=== PATIENT | female | born 1930 | race Caucasian/White ===

== ENCOUNTER 2016-09-10 04:39 | Inpatient (IN) | payer BC, OTHER ==
[~2016-09-10] VITALS: Ht 165.1 cm; Wt 54.4 kg
--- NOTE | 2016-09-10 04:45 | NUR ---
TO BED 3 [facility] PARAMEDICS C/O ALTERED MENTAL STATUS, PT SOMNOLENT, NO ACUTE DISTRESS NOTED, RESP EVEN AND UNLABORED. PLACE PT ON CARDIAC MONITORING, CONTINUOUS POX, O2@2L/NC. ER MD AT BEDSIDE TO EVAL PT WITH ORDERS RECEIVED. STARTED SL 18G TO R FOREARM, BLOOD DRAWNAND SENT OT LAB.
[2016-09-10] MEDS ORDERED: DEXTROSE 50%-WATER 50 ML DISP.SYRIN IVP ONE (05:00)
[2016-09-10] MEDS ORDERED: IV NS 0.9% 1,000 ML BAG IV ONE (05:00)
[2016-09-10] MEDS ORDERED: IV NS 0.9% 1,000 ML ONE (05:05)
[2016-09-10] MEDS ORDERED: DEXTROSE 50%-WATER 50 ML DISP.SYRIN ONE (05:05)
[2016-09-10] MEDS ORDERED: IV SET PRIMARY 1 EA INFUS.SET MC ONE (05:05)
[2016-09-10 05:11] LABS: BASOPHILS % (AUTO) 0.4 % (0.0-2.0); EOSINOPHILS # (AUTO) 0.3 /CMM (0.0-0.7); EOSINOPHILS % (AUTO) 3.5 % (0.0-6.0); HEMATOCRIT 41 % (33-45); HEMOGLOBIN 13.6 g/dL (11.5-14.8); LYMPHOCYTES # (AUTO) 1.5 /CMM (0.8-4.8); LYMPHOCYTES % (AUTO) 20.8 % (20.0-44.0); MEAN CORPUSCULAR HEMOGLOBIN 31 PG (26.0-33.0); MEAN CORPUSCULAR HGB CONC 33 g/dl (31.0-36.0); MEAN CORPUSCULAR VOLUME 94 fL (82-100); MONOCYTES # (AUTO) 0.5 /CMM (0.1-1.30); MONOCYTES % (AUTO) 6.3 % (2.0-12.0); PLATELET COUNT (AUTO) 273 /CMM (150-450); RDW COEFFICIENT OF VARIATION 14.9 (11.5-15.0); RED BLOOD CELL COUNT(AUTO) 4.36 MIL/uL (4.0-5.2); WHITE BLOOD COUNT (AUTO) 7.3 K/uL (4.3-11.0)
[2016-09-10 05:29] LABS: APPEARANCE,URINE CLOUDY (CLEAR); BILIRUBIN,URINE NEGATIVE (NEGATIVE); BLOOD, URINE TRACE-INTA Ery/uL (NEGATIVE); COLOR,URINE YELLOW (YELLOW); KETONES,URINE TRACE (NEGATIVE); LEUKOCYTE ESTERASE ,URINE NEGATIVE (NEGATIVE); NITRITE, URINE NEGATIVE (NEGATIVE); PH,URINE 5.5 (5.0-8.0); PROTEIN,URINE 1+ mg/dl (NEGATIVE); UGLUCOSE NEGATIVE (NEGATIVE)
[2016-09-10 05:34] LABS: ALANINE AMINOTRANSFERASE 13 U/L (12-78); ALBUMIN 3.3 g/dL (3.4-5.0); ALKALINE PHOSPHATASE 68 U/L (46-116); ASPARTATE AMINOTRANSFERASE 33 U/L (15-37); BILIRUBIN,DIRECT 0.1 mg/dL (0.0-0.2); BILIRUBIN,TOTAL 0.4 mg/dL (0.2-1.0); CALCIUM, SERUM 9.2 mg/dL (8.5-10.1); CARBON DIOXIDE 28 mmol/L (21-32); CHLORIDE 105 mmol/L (98-107); CREATININE 0.8 mg/dL (0.6-1.3); GLUCOSE 81 mg/dL (74-106); INR 1.11 (0.87-1.13); POTASSIUM 3.6 mmol/L (3.5-5.1); PROTHROMBIN TIME 11.9 SECS (9.5-12.7); SODIUM SERUM 141 mmol/L (136-145); TOTAL PROTEIN, SERUM 7.1 g/dL (6.4-8.2); UREA NITROGEN, BLOOD 31 mg/dL (7-18)
[2016-09-10 05:37] LABS: TROPONIN I 0.017 ng/mL (0.00-0.056)
--- NOTE | 2016-09-10 05:38 | NUR ---
PT BACK FROM RADIOLOGY. PENDING CT RESULT.
--- NOTE | 2016-09-10 05:39 | NUR ---
CT RESULT RECEIVED. ER MADE AWARE.
[2016-09-10 05:40] LABS: BACTERIA,URINE None seen /HPF (None Seen); MUCUS,URINE Few /LPF (None Seen); RBC,URINE 0-2 /HPF (0-2); SQUAMOUS EPITHELIAL CELL,UR Moderate /HPF (None Seen); URINE AMORPHOUS URATE Many /HPF (None Seen); WBC,URINE 0-2 /HPF (0-3)
--- NOTE | 2016-09-10 06:09 | NUR ---
MD BERUMEN CALLED
[2016-09-10] MEDS ORDERED: CRAN3875 PO (06:26)
[2016-09-10] MEDS ORDERED: ARGI1POW13 PO (06:26)
[2016-09-10] MEDS ORDERED: LEVO100T9 PO (06:26)
[2016-09-10] MEDS ORDERED: DONE10TA4 PO (06:26)
[2016-09-10] MEDS ORDERED: ZINC220C6 PO (06:26)
[2016-09-10] MEDS ORDERED: AMIN30LI27 PO (06:26)
[2016-09-10] MEDS ORDERED: CRAN425C PO (06:26)
[2016-09-10] MEDS ORDERED: MAGN2400 PO (06:26)
[2016-09-10] MEDS ORDERED: PRAM0.37 PO (06:26)
[2016-09-10] MEDS ORDERED: CARB-92 PO (06:26)
[2016-09-10] MEDS ORDERED: ACET-868 PO (06:26)
[2016-09-10] MEDS ORDERED: MULT1TAB11 PO (06:26)
[2016-09-10] MEDS ORDERED: ASCO500T9 PO (06:26)
[2016-09-10] MEDS ORDERED: DOCU-25 PO (06:26)
--- NOTE | 2016-09-10 06:35 | NUR ---
REPORT CALLED TO RETAIL WORKERNAKUL RHODES. WILL TRANSPORT VIA [facility].
--- NOTE | 2016-09-10 07:20 | NUR ---
EDUCATIONAL ASSISTANT TEACHER NOTES RECEIVED PATIENT IN BED, LETHARGIC , EASILY AROUSED. NO APPARENT DISTRESS NOTED, NO SOB NOTED, DENIES PAIN. PATIENT IS NEW ADMISSION A/O X 1, ON TELE MONITORING A FIB HR 110,VS STABLE. NO PATIENT PULLED OUT IV LINE. ALL NEEDS MET, KEPT CLEAN AND DRY. Addendum: 09/10/16 at 1609 by EMMANUEL CRUZ RN PATIENT HAD LARGE BOWEL MOVEMENT, NOTE WITH SACRAL AND DRESSINGS ON BILATERAL HEELS.
[2016-09-10 08:00] VITALS: BP 122/70
[2016-09-10] MEDS: LEVOTHYROXINE SODIUM 100 MCG TABLET PO SCH (08:58)
[2016-09-10] MEDS ORDERED: ACETAMINOPHEN 650 MG/20.3 ML UDC PO PRN (09:00)
[2016-09-10] MEDS ORDERED: HYDROCODONE/APAP 5/325MG 1 EACH TABLET PO PRN (09:00)
[2016-09-10] MEDS: CARBIDOPA/LEVODOPA 10/100 MG 1 UDTAB PO SCH ×4 (09:00→21:00)
[2016-09-10] MEDS: PRAMIPEXOLE DI-HCL 0.25 MG TABLET PO SCH ×4 (09:00→21:00)
--- NOTE | 2016-09-10 09:00 | NUR ---
CONVICT GUARD NOTES MEDS HELD DUE TO PATIENT BEING LETHARGIC.
[2016-09-10] MEDS ORDERED: LEVOFLOXACIN 500 MG /D5W 100ML 500 MG in PREMIX 1 EA IV SCH (10:00)
[2016-09-10] MEDS: ENOXAPARIN SODIUM 30 MG/0.3 ML DISP.SYRIN SQ SCH (11:29)
[2016-09-10] MEDS: LEVOFLOXACIN 750 MG /D5W 150ML 750 MG in PREMIX 1 EA IV SCH (11:49)
[2016-09-10] MEDS ORDERED: IV NS 0.9% 250 ML IV ONE (11:49)
[2016-09-10] MEDS ORDERED: SECONDARY IV SET 1 EA INFUS.SET MC ONE (11:53)
[2016-09-10 12:00] VITALS: BP 116/92
[2016-09-10] MEDS ORDERED: IV SET PRIMARY PUMP SET 1 EA INFUS.SET MC ONE (12:01)
--- NOTE | 2016-09-10 13:00 | NUR ---
WELFARE PROJECT MANAGER NOTES PATIENT MORE AWAKE, ATE 75% OF LUNCH TRAY.
[2016-09-10 16:00] VITALS: BP 106/57
--- NOTE | 2016-09-10 16:00 | NUR ---
TUTOR COORDINATOR NOTES WOUND TREATMENT DONE. CLEANSED SACRAL WOUND AND COVERED WITH MEPILEX. BILATERAL HEELS DTI, COVERED WITH MEPILEX OFFLOADED HEELS. PICTURES TAKE FOR CHART.
--- NOTE | 2016-09-10 18:50 | NUR ---
TECHNICIAN HELPER INSTRUMENT CLOSING NOTES PATIENT IN BED, NO APPARENT DISTRESS NOTED, DENIES PAIN DENIES SOB. ALL DUE MEDS GIVEN, ALL NEEDS MET, KEPT CLEAN AND DRY. ON 2L O2 VIA NC CANULA SATURATING WELL., ON TELE MONITORING AFIB 100. WILL ENDORSE CARE TO PM SHIFT.
--- NOTE | 2016-09-10 19:25 | NUR ---
TELE/RN NOTES RECEIVED PT. LYING IN BED RESTING. PT. IS EASILY AROUSABLE TO NAME. AWAKE, ALERT AND ORIENTED TO SELF. BREATHING EVEN AND UNLABORED ON 2LPM O2 VIA NC. NO SOB, RESPIRATORY DISTRESS OR COMPLAINTS OF PAIN NOTED AT THIS TIME. PT. WITH EXTERNAL FORKLIFT TECHNICIAN PRESENT AND INTACT. CURRENT RHYTHM = AFIB 98. PT. WITH RIGHT FOREARM 22 GAUGE IV SALINE LOCK PRESENT, PATENT AND INTACT. BED IN LOWEST POSITION, SIDE RAILS UP X3, BED ALARM ON, CALL LIGHT WITHIN REACH, WILL CONTINUE TO MONITOR.
[2016-09-10 20:00] VITALS: BP 96/49
[2016-09-10] MEDS ORDERED: DONEPEZIL 5 MG TABLET PO SCH (22:00)
[2016-09-11] VITALS: BP 98/70
--- NOTE | 2016-09-11 06:54 | NUR ---
TELE/RN NOTES PT. LYING IN BED AWAKE, ALERT AND ORIENTED TO SELF. BREATHING EVEN AND UNLABORED ON 2LPM O2 VIA NC. NO SOB, RESPIRATORY DISTRESS OR COMPLAINTS OF PAIN NOTED AT THIS TIME. PT. WITH EXTERNAL TRANSFORMATION CONSULTANT PRESENT AND INTACT. CURRENT RHYTHM = AFIB 112. PT. WITH LEFT HAND 24 GAUGE IV SALINE LOCK PRESENT, PATENT AND INTACT. ALL PT. NEEDS MET. PT. TURNED AND REPOSITIONED Q2H AND NEEDED. BILATERAL HEELS OFFLOADED AT ALL TIMES. BED IN LOWEST POSITION, SIDE RAILS UP X3, BED ALARM ON, CALL LIGHT WITHIN REACH, WILL ENDORSE TO DAYSHIFT NURSE FOR CONTINUITY OF CARE.
[2016-09-11 06:59] LABS: BASOPHILS % (AUTO) 0.5 % (0.0-2.0); EOSINOPHILS # (AUTO) 0.2 /CMM (0.0-0.7); HEMATOCRIT 39 % (33-45); HEMOGLOBIN 12.9 g/dL (11.5-14.8); LYMPHOCYTES # (AUTO) 1.4 /CMM (0.8-4.8); LYMPHOCYTES % (AUTO) 17.6 % (20.0-44.0); MEAN CORPUSCULAR HEMOGLOBIN 31 PG (26.0-33.0); MEAN CORPUSCULAR HGB CONC 33 g/dl (31.0-36.0); MEAN CORPUSCULAR VOLUME 95 fL (82-100); MONOCYTES # (AUTO) 0.5 /CMM (0.1-1.30); NEUTROPHILS # (AUTO) 5.7 /CMM (1.8-8.9); NEUTROPHILS % (AUTO) 72.9 % (43.0-81.0); PLATELET COUNT (AUTO) 258 /CMM (150-450); RDW COEFFICIENT OF VARIATION 14.8 (11.5-15.0); RED BLOOD CELL COUNT(AUTO) 4.14 MIL/uL (4.0-5.2); WHITE BLOOD COUNT (AUTO) 7.9 K/uL (4.3-11.0)
[2016-09-11 07:33] LABS: ALANINE AMINOTRANSFERASE 37 U/L (12-78); ALBUMIN 2.8 g/dL (3.4-5.0); ALKALINE PHOSPHATASE 60 U/L (46-116); ASPARTATE AMINOTRANSFERASE 38 U/L (15-37); BILIRUBIN,TOTAL 0.4 mg/dL (0.2-1.0); CALCIUM, SERUM 8.9 mg/dL (8.5-10.1); CARBON DIOXIDE 29 mmol/L (21-32); CHLORIDE 105 mmol/L (98-107); CREATININE 0.6 mg/dL (0.6-1.3); GLUCOSE 74 mg/dL (74-106); POTASSIUM 4.2 mmol/L (3.5-5.1); SODIUM SERUM 140 mmol/L (136-145); TOTAL PROTEIN, SERUM 6.3 g/dL (6.4-8.2); UREA NITROGEN, BLOOD 20 mg/dL (7-18)
--- NOTE | 2016-09-11 07:37 | NUR ---
HAND SHOE CUTTER NOTES RECEIVED PATIENT IN BED, SLEEPING, EASILY AROUSED. NO APPARENT DISTRESS NOTED DENIES PAIN, NO SOB NOTED. ON TELE MONITORING AFIB HR99. NEW IV LINE ON LEFT HAND PATENT, WRAPPED WITH KERLIX DUE TO PATIENT PULLING OUT TWO PREVIOUS IV LINES. ALL NEEDS MET, KEPT CLEAN AND DRY, CALL LIGHT WITHIN REACH, BED ALARM ON.
[2016-09-11 08:00] VITALS: BP 114/73
[2016-09-11] MEDS: LEVOTHYROXINE SODIUM 100 MCG TABLET PO SCH (08:42)
[2016-09-11] MEDS: PRAMIPEXOLE DI-HCL 0.25 MG TABLET PO SCH ×4 (09:00→21:54)
[2016-09-11] MEDS: CARBIDOPA/LEVODOPA 10/100 MG 1 UDTAB PO SCH ×4 (09:00→21:50)
[2016-09-11] MEDS: ENOXAPARIN SODIUM 30 MG/0.3 ML DISP.SYRIN SQ SCH (09:39)
[2016-09-11 16:00] VITALS: BP 113/73
--- NOTE | 2016-09-11 18:46 | NUR ---
NAKUL MS NOTES PATIENT IN BED, A/OX1,MORE AWAKE TODAY. NO APPARENT DISTRESS NOTED, DENIES PAIN DENIES SOB. IV LINE ON LEFT HAND PATENT. ALL DUE MEDS GIVEN ALL NEEDS MET, KEPT CLEAN AND DRY. WOUND TX DONE TO BILATERAL HEELS AND TO SACRAL WOUND. WILL ENDORSE CARE TO PM SHIFT. Addendum: 09/11/16 at 1856 by EMMANUEL CRUZ RN PATIENT REFUSED ALL HER MEDICATIONS
--- NOTE | 2016-09-11 19:30 | NUR ---
MS RN OPENING NOTES: PATIENT IN BED, AOX1, CONFUSED. BREATHING EVEN AND UNLABORED. ON O2 AT 2 LPM VIA NC. PIV OVER L HAND G 24 INTACT AND PATENT, WRAPPED WITH KERLIX. PROVIDED FOR COMFORT AND SAFETY. BED IN LOWEST AND LOCKED POSITION, SIDERAILS UP X3. BED ALARMS ON. WILL CONT TO MONITOR.
[2016-09-11 20:00] VITALS: BP 102/62
--- NOTE | 2016-09-12 02:00 | NUR ---
RN NOTES: NOTED PARTIAL THICKNESS WOUND OVER SACRAL AREA. CLEANSED WITH NS, PATTED DRY, COVERED WITH MEPILEX. TURNED AND REPOSITIONED PATIENT. AWAITING WOUND CONSULT.
--- NOTE | 2016-09-12 06:27 | NUR ---
MS RN CLOSING NOTES: PATIENT IN BED, AOX1, ON ROOM AIR, BREATHING EVEN AND UNLABORED. APPEARS CALM AND IN NO DISTRESS, CONFUSED. WAS ABLE TO SLEEP INTERMITTENTLY THROUGH NIGHT. DUE MEDS GIVEN. TURNED AND REPOSITIONED PATIENT, MORNING CARE RENDERED. NO ACUTE CHANGE IN CONDITION NOTED THROUGH NIGHT. PROVIDED FOR COMFORT AND SAFETY. BED IN LOWEST AND LOCKED POSITION, SIDERAILS UP X3. WILL ENDORSE TO AM RN FOR KATINA.
[2016-09-12 06:48] LABS: BASOPHILS % (AUTO) 0.3 % (0.0-2.0); EOSINOPHILS # (AUTO) 0.2 /CMM (0.0-0.7); EOSINOPHILS % (AUTO) 2.8 % (0.0-6.0); HEMATOCRIT 40 % (33-45); HEMOGLOBIN 13.2 g/dL (11.5-14.8); LYMPHOCYTES # (AUTO) 1.4 /CMM (0.8-4.8); LYMPHOCYTES % (AUTO) 19.1 % (20.0-44.0); MEAN CORPUSCULAR HEMOGLOBIN 31 PG (26.0-33.0); MEAN CORPUSCULAR HGB CONC 33 g/dl (31.0-36.0); MEAN CORPUSCULAR VOLUME 94 fL (82-100); MONOCYTES # (AUTO) 0.4 /CMM (0.1-1.30); MONOCYTES % (AUTO) 6.2 % (2.0-12.0); NEUTROPHILS # (AUTO) 5.2 /CMM (1.8-8.9); NEUTROPHILS % (AUTO) 71.6 % (43.0-81.0); PLATELET COUNT (AUTO) 256 /CMM (150-450); RDW COEFFICIENT OF VARIATION 14.9 (11.5-15.0); RED BLOOD CELL COUNT(AUTO) 4.26 MIL/uL (4.0-5.2); WHITE BLOOD COUNT (AUTO) 7.3 K/uL (4.3-11.0)
[2016-09-12 07:29] LABS: CALCIUM, SERUM 8.7 mg/dL (8.5-10.1); CARBON DIOXIDE 27 mmol/L (21-32); CHLORIDE 107 mmol/L (98-107); CREATININE 0.8 mg/dL (0.6-1.3); GLUCOSE 74 mg/dL (74-106); POTASSIUM 3.9 mmol/L (3.5-5.1); SODIUM SERUM 142 mmol/L (136-145); UREA NITROGEN, BLOOD 19 mg/dL (7-18)
[2016-09-12] MEDS ORDERED: LEVOTHYROXINE SODIUM 112 MCG TABLET PO SCH (07:30)
[2016-09-12 08:00] VITALS: BP 113/67
--- NOTE | 2016-09-12 08:00 | NUR ---
RECEIVED PATIENT IN BED,CONFUSED NO APPARENT DISTRESS NOTED, DENIES PAIN, DENIES SOB. IV LINE ON LEFT HAND PATENT. ALL NEEDS MET, KEPT CLEAN AND DRY, BED ALRM ON, SIDE RAILS X3.
[2016-09-12] MEDS: ENOXAPARIN SODIUM 30 MG/0.3 ML DISP.SYRIN SQ SCH (09:38)
[2016-09-12] MEDS: CARBIDOPA/LEVODOPA 10/100 MG 1 UDTAB PO SCH ×3 (09:39→17:00)
[2016-09-12] MEDS: PRAMIPEXOLE DI-HCL 0.25 MG TABLET PO SCH ×3 (09:39→17:00)
[2016-09-12] MEDS ORDERED: LEVO500T15 PO (10:59)
[2016-09-12] MEDS ORDERED: LEVO112T5 PO (10:59)
--- NOTE | 2016-09-12 11:05 | NUR ---
WOUND CARE CONSULT: PT PRESENTS WITH STAGE 3 ULCER TO SACRUM, INTACT DEEP TISSUE INJURY TO RT HEEL AND LEFT HEEL FRAGILE SCAR, ALL PRESENT ON ADMISSION. PT ON ISOFLEX LOW AIRLOSS BED. ALL SKIN PROTECTION AND WOUND RECOMMENDATIONS DISCUSSED WITH NURSING STAFF. RECOMMEND SURGICAL CONSULT. WILL SEE PRN. SEQUEIRA IN AGREEMENT WITH PLAN OF CARE. Addendum: 09/12/16 at 1107 by FOSTER HERNANDEZ WNDNU Amended: Links added.
[2016-09-12] MEDS ORDERED: ASPI-991 PO (11:15)
[2016-09-12] MEDS: LEVOFLOXACIN 750 MG /D5W 150ML 750 MG in PREMIX 1 EA IV SCH (11:25)
[2016-09-12] MEDS ORDERED: HYDROGEL DRESSING 90 GM TUBE TP PRN (11:30)
[2016-09-12] MEDS ORDERED: Z GUARD REMEDY 2 OZ OINT TP PRN (11:30)
[2016-09-12] MEDS ORDERED: Z GUARD REMEDY 2 OZ OINT TP SCH (12:00)
[2016-09-12] MEDS ORDERED: ASPIRIN EC 81 MG TABLET.DR PO SCH (12:00)
[2016-09-12] MEDS ORDERED: HYDROGEL DRESSING 90 GM TUBE TP SCH (12:00)
--- NOTE | 2016-09-12 17:15 | NUR ---
RN MS CLOSING NOTES PATIENT LEFT IN STABLE CONDITION ON A GURNEY, VIA AMBULANCE. NO APPARENT DISTRESS NOTED, PATIENT AWAKE AND VERBALLY RESPONSIVE. DENIES PAIN , DENIES SOB. ALL DUE MEDS GIVEN, ALL NEEDS MET, KEPT CLEAN AND DRY. SKIN ASSESSMENT DONE NOTED WITH SACRAL STG3, BILATERAL HEELS DTI. PICTURES IN CHART, WOUND TX DONE ORDERED. DISCHARGE INSTRUCTIONS GIVEN TO STEEL RULE INSPECTOR, CO SIGNED BY TWO RNS. PATIENT LEFT WITH LOWER AND UPPER PARTIAL DENTURES IN HER MOUTH. BELONGING LIST COSIGNED WITH ANOTHER RN. REPORT GIVEN TO REGINALD MOTA FROM [facility].
== END 2016-09-12 17:15 | DRG 193 ==
LOC: ER 04:40 → TELE 06:25 → MED 09-11 09:51
PROVIDERS: ADMIT Internal Medicine; ATTEND Internal Medicine
DX: J15.9 Unspecified bacterial pneumonia (principal); G93.41 Metabolic encephalopathy; I50.22 Chronic systolic (congestive) heart failure; E03.9 Hypothyroidism, unspecified; G20 Parkinson's disease; I25.10 Atherosclerotic heart disease of native coronary artery without angina pectoris; Z87.440 Personal history of urinary (tract) infections; F02.80 Dementia in other diseases classified elsewhere, unspecified severity, without behavioral disturbance, psychotic disturbance, mood disturbance, and anxiety; I48.2 Chronic atrial fibrillation
CPT/HCPCS: 36415; 70450-TC; 70551-TC; 71010-TC; 80048-TC; 80053-TC; 80076-TC; 80305; 81000-TC; 82962-TC; 83605-TC; 84443-TC; 84484-TC; 85025-TC; 85730-TC; 87040-TC; 87081-TC; 93307-TC; 94799-TC; A4216; A4606; A6248; J1650; J1956; J7030; J7050; Z7610

== ENCOUNTER 2016-09-12 18:13 | Emergency (ER) | payer BC ==
[~2016-09-12] VITALS: Ht 152.4 cm; Wt 49.0 kg
[~2016-09-12 18:13] MED LIST: ASPI-991 PO; CARB-92 PO; DONE10TA4 PO; LEVO100T9 PO; LEVO112T5 PO; LEVO500T15 PO; PRAM0.37 PO
--- NOTE | 2016-09-12 18:20 | NUR ---
BIB RA C/O LOW O2 SATURATION OF 89% WHILE SLEEPING. VSS. SEEN BY FOR EVAL. PT ALERT TO SELF. RR EVEN AND UNLABORED. SAFETY AND COMFORT MEASURES PROVIDED. WILL MONITOR.
--- NOTE | 2016-09-12 18:30 | NUR ---
CALLED RT FOR ABG
--- NOTE | 2016-09-12 18:50 | NUR ---
CALLED RADIOLOGY TO FOLLOW UP ON CHEST X RAY
--- NOTE | 2016-09-12 18:51 | NUR ---
RT AT FOR ABG.
--- NOTE | 2016-09-12 18:55 | NUR ---
X-RAY TECH AT BEDSIDE FOR CHEST X-RAY
[2016-09-12 18:56] LABS: ABG BASE EXCESS 0.5 mmol/L; ABG OXYGEN SATURATION 96.8 % (92.0-98.5); ABG PH 7.517 (7.350-7.450); ABG PO2 85.8 mmHg (75.0-100.0); AaDO2 30.4 mmHg; COHb 0.7 % (0.5-1.5); MetHb 0.4 % (0.0-1.5); O2Hb 95.7 % (94.0-97.0); SITE, ABG Right Radial; VENT MODE, BG Room Air
--- NOTE | 2016-09-12 19:10 | NUR ---
PAGED DR BERUMEN FOR CALL BACK, PER DR NARAYAN
--- NOTE | 2016-09-12 19:45 | NUR ---
CALLED [facility] FOR TRANSPORT BACK TO FACILITY, ETA 30 MINUTES
--- NOTE | 2016-09-12 20:06 | NUR ---
REPORT GIVEN TO RHIANNA AT [facility]
--- NOTE | 2016-09-12 20:10 | NUR ---
REPORT GIVEN TO TRANSPORT FOR KATINA
[2016-09-12 20:11] VITALS: BP 104/56
[2016-09-29] MEDS ORDERED: Digoxin PO (11:43)
[2016-09-29] MEDS ORDERED: CARV6.252 PO (11:43)
[2016-09-29] MEDS ORDERED: FURO20TA4 PO (11:43)
[2016-09-29] MEDS ORDERED: LISI5TAB45 PO (11:43)
[2016-09-29] MEDS ORDERED: POTA10TA10 PO (11:43)
== END 2016-09-12 20:11 | disposition home or self-care (01) ==
LOC: ER 18:16
DX: R06.02 Shortness of breath (principal); E03.9 Hypothyroidism, unspecified; F03.90 Unspecified dementia, unspecified severity, without behavioral disturbance, psychotic disturbance, mood disturbance, and anxiety; G20 Parkinson's disease; J44.9 Chronic obstructive pulmonary disease, unspecified; Z79.82 Long term (current) use of aspirin; Z88.0 Allergy status to penicillin
CPT/HCPCS: 36600; 71010; 99285; A4606; Z7610

== ENCOUNTER 2016-09-20 00:28 | Emergency (ER) | payer BC ==
[~2016-09-20] VITALS: Ht 165.1 cm; Wt 61.2 kg
[~2016-09-20 00:28] MED LIST changes: -LEVO100T9 PO
--- NOTE | 2016-09-20 00:30 | NUR ---
TO BED 7 A 85 YO FEMALE BIBRA FROM [facility] FOR "SOB/RALES WITH 02 SATS 70% RA; NOW ON 10L ROUGHER MACHINE OPERATOR." UPON ARRIVAL, PATIENT IS AAOX1, ON NONREBREATHER MASK 15LPM, SATTING AT 100%. KEPT HOB ELEVATED, MAINTAINED PATENT AIRWAY. CARDIAC AND VS MONITORING PLACED. GOWNED. SAFETY AND COMFORT MEASURES RENDERED.
[2016-09-20] MEDS ORDERED: IV NS 0.9% 500 ML BAG IV ONE (01:30)
[2016-09-20] MEDS ORDERED: DEXTROSE 50%-WATER 50 ML DISP.SYRIN IVP ONE (01:30)
[2016-09-20] MEDS ORDERED: DEXTROSE 50%-WATER 50 ML DISP.SYRIN ONE (01:34)
[2016-09-20 01:50] LABS: BASOPHILS % (AUTO) 0.2 % (0.0-2.0); EOSINOPHILS # (AUTO) 0.2 /CMM (0.0-0.7); EOSINOPHILS % (AUTO) 2.6 % (0.0-6.0); HEMATOCRIT 36 % (33-45); HEMOGLOBIN 11.7 g/dL (11.5-14.8); LYMPHOCYTES # (AUTO) 1.1 /CMM (0.8-4.8); LYMPHOCYTES % (AUTO) 12.5 % (20.0-44.0); MEAN CORPUSCULAR HEMOGLOBIN 31 PG (26.0-33.0); MEAN CORPUSCULAR HGB CONC 33 g/dl (31.0-36.0); MEAN CORPUSCULAR VOLUME 94 fL (82-100); MONOCYTES # (AUTO) 0.7 /CMM (0.1-1.30); MONOCYTES % (AUTO) 7.3 % (2.0-12.0); NEUTROPHILS # (AUTO) 6.9 /CMM (1.8-8.9); NEUTROPHILS % (AUTO) 77.4 % (43.0-81.0); PLATELET COUNT (AUTO) 196 /CMM (150-450); RDW COEFFICIENT OF VARIATION 15.1 (11.5-15.0); WHITE BLOOD COUNT (AUTO) 8.9 K/uL (4.3-11.0)
[2016-09-20 02:03] LABS: CALCIUM, SERUM 8.8 mg/dL (8.5-10.1); CARBON DIOXIDE 26 mmol/L (21-32); CHLORIDE 107 mmol/L (98-107); CREATININE 0.7 mg/dL (0.6-1.3); GLUCOSE 81 mg/dL (74-106); SODIUM SERUM 142 mmol/L (136-145); UREA NITROGEN, BLOOD 28 mg/dL (7-18)
[2016-09-20 02:07] LABS: INR 1.23 (0.87-1.13); PROTHROMBIN TIME 13.3 SECS (9.5-12.7)
[2016-09-20 02:09] LABS: ALANINE AMINOTRANSFERASE 23 U/L (12-78); ALBUMIN 3.5 g/dL (3.4-5.0); ALKALINE PHOSPHATASE 86 U/L (46-116); ASPARTATE AMINOTRANSFERASE 58 U/L (15-37); BILIRUBIN,DIRECT 0.2 mg/dL (0.0-0.2); BILIRUBIN,TOTAL 0.7 mg/dL (0.2-1.0); TOTAL PROTEIN, SERUM 7.1 g/dL (6.4-8.2)
--- NOTE | 2016-09-20 02:16 | NUR ---
patient now on room air, no sob. alert and responsive. satting at 96%.
[2016-09-20 02:25] LABS: APPEARANCE,URINE CLEAR (CLEAR); BILIRUBIN,URINE NEGATIVE (NEGATIVE); BLOOD, URINE 2+ Ery/uL (NEGATIVE); COLOR,URINE YELLOW (YELLOW); KETONES,URINE NEGATIVE (NEGATIVE); LEUKOCYTE ESTERASE ,URINE NEGATIVE (NEGATIVE); NITRITE, URINE NEGATIVE (NEGATIVE); PROTEIN,URINE 1+ mg/dl (NEGATIVE); UGLUCOSE 1+ mg/dL (NEGATIVE)
[2016-09-20 02:33] LABS: BACTERIA,URINE 1+ /HPF (None Seen); SQUAMOUS EPITHELIAL CELL,UR Few /HPF (None Seen); WBC,URINE 0-2 /HPF (0-3)
[2016-09-20 03:31] LABS: TROPONIN I 0.044 ng/mL (0.00-0.056)
--- NOTE | 2016-09-20 03:55 | NUR ---
Report given to Clotilde MOTA from [facility] for transfer and aury.
--- NOTE | 2016-09-20 04:35 | NUR ---
REPEAT ACCUCHECK DONE, NOTED 76MG/DL. NOTIFIED DR MOORE. PROVIDED PATIENT WITH FOOD AND JUICE TO EAT.
--- NOTE | 2016-09-20 04:42 | NUR ---
Discontinued hamlin cath and IV removed. Catheter intact and site benign. Pressure and 4x4 applied to site. No bleeding noted. Report given to ems. Patient is aaox1. no acute distress. vss. No further complaints.
[2016-09-20 04:44] VITALS: BP 120/76
== END 2016-09-20 04:45 ==
LOC: ER 00:30
DX: R41.82 Altered mental status, unspecified (principal); E16.2 Hypoglycemia, unspecified; N81.4 Uterovaginal prolapse, unspecified; E03.9 Hypothyroidism, unspecified; F03.90 Unspecified dementia, unspecified severity, without behavioral disturbance, psychotic disturbance, mood disturbance, and anxiety; G20 Parkinson's disease; J44.9 Chronic obstructive pulmonary disease, unspecified; R09.02 Hypoxemia; Z79.82 Long term (current) use of aspirin; Z88.0 Allergy status to penicillin
CPT/HCPCS: 36415; 51702; 70450; 71010; 80048; 80076; 81001; 82962 ×2; 84484; 85025; 85730; 87081; 93005; 96374; 99285; A4606; J7040 ×2; 81000-TC; Z7610

== ENCOUNTER 2016-09-27 14:37 | Inpatient (IN) | payer BC, OTHER ==
[~2016-09-27] VITALS: Ht 170.2 cm; Wt 57.2 kg
--- NOTE | 2016-09-27 14:47 | NUR ---
CATY FROM [facility] DT SOB, PATIENT RECEIVED ON NON REBREATHER. PT IS AWAKE HOWEVER CONFUSED. APPEARS IN NO APPARENT DISTRESS, RESPIRATION EVEN AND UNLABORED. SKIN IS WARM TO TOUCH AND NON DIAPHORETIC. PATIENT IS AFEBRILE. IV ON LAC 20 NOTED INTACT, VSS. GOWNED PT AND PLACED ON TELE MONITOR
[2016-09-27 15:21] LABS: BASOPHILS # (AUTO) 0.4 /CMM (0.0-0.2); BASOPHILS % (AUTO) 3.6 % (0.0-2.0); EOSINOPHILS # (AUTO) 0.2 /CMM (0.0-0.7); EOSINOPHILS % (AUTO) 1.4 % (0.0-6.0); HEMATOCRIT 36 % (33-45); HEMOGLOBIN 12.1 g/dL (11.5-14.8); LYMPHOCYTES # (AUTO) 0.7 /CMM (0.8-4.8); LYMPHOCYTES % (AUTO) 6.4 % (20.0-44.0); MEAN CORPUSCULAR HEMOGLOBIN 31 PG (26.0-33.0); MEAN CORPUSCULAR HGB CONC 34 g/dl (31.0-36.0); MEAN CORPUSCULAR VOLUME 94 fL (82-100); MONOCYTES # (AUTO) 0.7 /CMM (0.1-1.30); MONOCYTES % (AUTO) 6.7 % (2.0-12.0); NEUTROPHILS # (AUTO) 8.7 /CMM (1.8-8.9); NEUTROPHILS % (AUTO) 81.9 % (43.0-81.0); PLATELET COUNT (AUTO) 226 /CMM (150-450); RED BLOOD CELL COUNT(AUTO) 3.84 MIL/uL (4.0-5.2); WHITE BLOOD COUNT (AUTO) 10.7 K/uL (4.3-11.0)
[2016-09-27] MEDS ORDERED: DILTIAZEM HCL 50 MG IV IV ONE ×2 (15:30→16:00)
[2016-09-27] MEDS ORDERED: DILTIAZEM HCL 25 MG IV ONE (15:34)
[2016-09-27 15:35] LABS: CALCIUM, SERUM 8.8 mg/dL (8.5-10.1); CARBON DIOXIDE 26 mmol/L (21-32); CHLORIDE 98 mmol/L (98-107); CREATININE 1.1 mg/dL (0.6-1.3); GLUCOSE 123 mg/dL (74-106); POTASSIUM 3.1 mmol/L (3.5-5.1); SODIUM SERUM 133 mmol/L (136-145); UREA NITROGEN, BLOOD 36 mg/dL (7-18)
[2016-09-27 15:37] LABS: INR 1.27 (0.87-1.13); PROTHROMBIN TIME 13.4 SECS (9.5-12.7)
[2016-09-27 15:43] LABS: TROPONIN I 0.021 ng/mL (0.00-0.056)
[2016-09-27 15:59] LABS: BAND % (MANUAL) 4 % (0.0-5.0); EOSINOPHILS % (MANUAL) 2 % (0-4); LYMPHOCYTES % (MANUAL) 13 % (16-48); MONOCYTES % (MANUAL) 3 % (0-11.0); NEUTROPHILS % (MANUAL) 78 (42-76)
[2016-09-27] MEDS ORDERED: POTASSIUM CL. PREMIX PERIPHER. 50 ML ONE ×2 (16:00→17:09)
[2016-09-27] MEDS ORDERED: POTASSIUM CHLORIDE 10 MEQ/50 ML PREMIXED IVPB FOR PERIPHERAL LINE IV ONE (16:00)
[2016-09-27 16:03] LABS: ALANINE AMINOTRANSFERASE 29 U/L (12-78); ALBUMIN 3.5 g/dL (3.4-5.0); ALKALINE PHOSPHATASE 78 U/L (46-116); ASPARTATE AMINOTRANSFERASE 50 U/L (15-37); B-TYPE NATRIURETIC PEPTIDE 6051 PG/ML (0-125); BILIRUBIN,DIRECT 0.2 mg/dL (0.0-0.2); BILIRUBIN,TOTAL 0.5 mg/dL (0.2-1.0); TOTAL PROTEIN, SERUM 6.7 g/dL (6.4-8.2)
--- NOTE | 2016-09-27 16:05 | NUR ---
ORDERED 40 MEQ K IV, 10 MEQ NOW RUNNING
[2016-09-27] MEDS ORDERED: FUROSEMIDE 20 MG/2 ML VIAL IV ONE (16:30)
--- NOTE | 2016-09-27 16:34 | NUR ---
CALLED DR BERUMEN LEFT VOICEMAIL.
[2016-09-27] MEDS ORDERED: FUROSEMIDE 20 MG/2 ML VIAL ONE (16:41)
--- NOTE | 2016-09-27 16:56 | NUR ---
RECALLED DR BERUMEN LEFT VOICEMAIL.
--- NOTE | 2016-09-27 17:00 | NUR ---
POTASSIUM CHLORIDE 10 MEQ STARTED ON LAC 20
[2016-09-27] MEDS ORDERED: MULT-213 PO (17:01)
[2016-09-27] MEDS ORDERED: ASCO-340 PO (17:01)
[2016-09-27] MEDS ORDERED: LEVO150T8 PO (17:01)
[2016-09-27] MEDS ORDERED: APIX2.5T PO (17:01)
[2016-09-27] MEDS ORDERED: AMIN30LI2 PO (17:01)
[2016-09-27] MEDS ORDERED: ZINC220T PO (17:01)
[2016-09-27] MEDS ORDERED: CRAN425C PO (17:01)
[2016-09-27] MEDS ORDERED: ACET-868 PO (17:01)
[2016-09-27] MEDS ORDERED: CRAN3875 PO (17:01)
[2016-09-27] MEDS ORDERED: ASPI-991 PO (17:01)
[2016-09-27] MEDS ORDERED: BISA10SU8 RC (17:01)
[2016-09-27] MEDS ORDERED: MAGN400O6 PO (17:01)
[2016-09-27] MEDS ORDERED: ASPIRIN 300 MG/SUPP.RECT RC ONE (17:21)
[2016-09-27] MEDS ORDERED: NTG 50 MG/D5W250 ML BOTTL 250 ML IV ONE (17:22)
--- NOTE | 2016-09-27 17:24 | NUR ---
[facility] PAGED [phone] DR JUNG; DR BERUMEN NOT RETURINING MULTIPLE VOICE MESSAGES AND NOT ANSWERING CALLS.
[2016-09-27] MEDS ORDERED: MORPHINE SULFATE INJ 2 MG/ML DISP.SYRIN ONE (17:32)
--- NOTE | 2016-09-27 17:42 | NUR ---
PATIENTS DAUGHTER CALLED TO CALL HER FOR ANY UPDATE [phone].
[2016-09-27] MEDS ORDERED: HEPARIN SODIUM, PORCINE 5000 UNITS/1 ML VIAL ONE (17:45)
[2016-09-27] MEDS ORDERED: POTASSIUM CL. PREMIX PERIPHER. 100 ML ONE (17:45)
--- NOTE | 2016-09-27 17:58 | NUR ---
DR NJ ON THE PHONE WITH DR BERUMEN.
--- NOTE | 2016-09-27 18:00 | NUR ---
POTASSIUM CHLORIDE 10MEQ RUNNING.
--- NOTE | 2016-09-27 18:26 | NUR ---
REPORT GIVEN TO NAKUL ABDUL
--- NOTE | 2016-09-27 18:27 | NUR ---
ENDORSED LAST BAG OF POTASSIUM CHLORIDE TO RN FRANKO, VERBALIZED UNDERSTANING
--- NOTE | 2016-09-27 18:44 | NUR ---
pt was trasnported to [facility]. vss
[2016-09-27 18:53] VITALS: BP 110/77
--- NOTE | 2016-09-27 18:56 | NUR ---
WOODS MANAGER RECEIVED PATIENT FROM THE ER ON A GURNEY. TRANSFERRED TO BED 2 PERSON ASSIST. OBTUNDED NEURO STATUS. AFIB ON MONITOR. NORMAL BP. 3L NASAL CANNULA FOR OXYGENATION. TURNED AND REPOSITIONED FOR COMFORT AND WOUND PREVENTION. WILL CONTINUE TO MONITOR AND PROVIDE CARE.
[2016-09-27] MEDS ORDERED: DIGOXIN INJ 0.5 MG/2 ML AMPUL IV ONE (19:00)
--- NOTE | 2016-09-27 19:25 | NUR ---
SHUTTLELESS LOOM WEAVER: PT JUST ADMITTED FROM ER IN [place] WITH AFIB RATE OF 110-120, DR BERUMEN ORDERS DIGOXIN 0.25 MG IV X1 GIVEN. POTASSIUM LEVEL WAS LOW, REPLACING KCL ORDERED BY MD. KEEP MONITORING.
[2016-09-27 20:00] VITALS: BP 124/80
--- NOTE | 2016-09-27 20:00 | NUR ---
BODY LINE FINISHER: PAGED TO DR BERUMEN, LEFT MESSAGE ON EXCHANGE REGARDING MED RECONCILIATION.
[2016-09-27 20:21] VITALS: BP 124/80
--- NOTE | 2016-09-27 20:47 | NUR ---
TIRE MOLD TESTER: 2ND TIME PAGED TO DR BERUMEN, LEFT MESSAGE ON EXCHANGE REGARDING MED RECONCILIATION.
[2016-09-27] MEDS ORDERED: MAGNESIUM HYDROXIDE 30 ML UDC PO PRN (21:00)
[2016-09-27] MEDS ORDERED: ACETAMINOPHEN 325 MG TABLET PO PRN (21:00)
[2016-09-27] MEDS ORDERED: BISACODYL SUPP (10 MG) 10 MG/SUPP.RECT SUPP.RECT RC PRN (21:00)
[2016-09-27] MEDS ORDERED: CARVEDILOL 3.125 MG TABLET PO SCH (21:00)
--- NOTE | 2016-09-27 21:07 | NUR ---
INSTRUCTIONAL DESIGN MANAGER: CALL RECEIVED FROM DR ATA CABRALES, MED RECONCILIATION DONE, GO THROUGH ALL HOME MEDS. COREG DOSE NEED TO GIVE NOW PER DR BERUMEN, WILL FOLLOW UP
[2016-09-27] MEDS: CARBIDOPA/LEVODOPA 10/100 MG 1 UDTAB PO SCH (21:27)
[2016-09-27] MEDS: PRAMIPEXOLE DI-HCL 0.25 MG TABLET PO SCH (21:27)
[2016-09-27] MEDS: DONEPEZIL 5 MG TABLET PO SCH (21:28)
[2016-09-28] VITALS (9 sets, daily range): BP systolic 100–132; BP diastolic 49–86
[2016-09-28 07:22] LABS: BASOPHILS % (AUTO) 0.4 % (0.0-2.0); EOSINOPHILS # (AUTO) 0.2 /CMM (0.0-0.7); EOSINOPHILS % (AUTO) 2.7 % (0.0-6.0); HEMATOCRIT 34 % (33-45); HEMOGLOBIN 11.6 g/dL (11.5-14.8); LYMPHOCYTES # (AUTO) 0.9 /CMM (0.8-4.8); LYMPHOCYTES % (AUTO) 12.7 % (20.0-44.0); MEAN CORPUSCULAR HEMOGLOBIN 32 PG (26.0-33.0); MEAN CORPUSCULAR HGB CONC 34 g/dl (31.0-36.0); MEAN CORPUSCULAR VOLUME 94 fL (82-100); MONOCYTES # (AUTO) 0.5 /CMM (0.1-1.30); MONOCYTES % (AUTO) 6.7 % (2.0-12.0); NEUTROPHILS # (AUTO) 5.5 /CMM (1.8-8.9); NEUTROPHILS % (AUTO) 77.5 % (43.0-81.0); PLATELET COUNT (AUTO) 199 /CMM (150-450); RDW COEFFICIENT OF VARIATION 14.9 (11.5-15.0); RED BLOOD CELL COUNT(AUTO) 3.65 MIL/uL (4.0-5.2); WHITE BLOOD COUNT (AUTO) 7.1 K/uL (4.3-11.0)
[2016-09-28] MEDS: LEVOTHYROXINE SODIUM 75 MCG TABLET PO SCH (07:30)
[2016-09-28 07:40] LABS: CALCIUM, SERUM 8.4 mg/dL (8.5-10.1); CARBON DIOXIDE 30 mmol/L (21-32); CHLORIDE 111 mmol/L (98-107); CREATININE 0.9 mg/dL (0.6-1.3); GLUCOSE 84 mg/dL (74-106); POTASSIUM 3.9 mmol/L (3.5-5.1); SODIUM SERUM 147 mmol/L (136-145); UREA NITROGEN, BLOOD 32 mg/dL (7-18)
[2016-09-28] MEDS ORDERED: Medication Not On Formulary EA (Cran/Vitc/Mannose/Inulin/Brom (Uti-Stat Liquid) 30 ML) PO SCH (09:00)
[2016-09-28] MEDS: ASPIRIN EC 81 MG TABLET.DR PO SCH (09:00)
[2016-09-28] MEDS ORDERED: CARVEDILOL 3.125 MG TABLET PO SCH (09:00)
[2016-09-28] MEDS: PRAMIPEXOLE DI-HCL 0.25 MG TABLET PO SCH ×4 (09:00→21:15)
[2016-09-28] MEDS: CARBIDOPA/LEVODOPA 10/100 MG 1 UDTAB PO SCH ×4 (09:00→21:15)
[2016-09-28] MEDS: ZINC SULFATE 220 MG CAPSULE PO SCH (10:30)
[2016-09-28] MEDS ORDERED: APIXABAN 2.5 MG TABLET PO ONE (10:30)
[2016-09-28] MEDS: PROSOURCE / PROSTAT (PYXIS) 30 ML UDC PO SCH ×2 (10:31→17:07)
[2016-09-28] MEDS: CARVEDILOL 6.25 MG TABLET PO SCH ×2 (10:31→21:00)
[2016-09-28] MEDS: MULTIVIT, IRON, MIN NO. 8, FA 1 TAB PO SCH (10:31)
[2016-09-28] MEDS: ASCORBIC ACID 500 MG TABLET PO SCH (10:34)
--- NOTE | 2016-09-28 10:35 | NUR ---
ROTOR WINDER COREG 3.25 MG GIVEN EARLIER SO ONLY HALF OF 6.25 MG IS GIVEN AT AROUND 1000AM
[2016-09-28] MEDS ORDERED: Z GUARD REMEDY 2 OZ OINT TP PRN (11:30)
[2016-09-28] MEDS ORDERED: HYDROGEL DRESSING 90 GM TUBE TP PRN (11:30)
[2016-09-28] MEDS: Z GUARD REMEDY 2 OZ OINT TP SCH (13:00)
[2016-09-28] MEDS: DIGOXIN 0.125 MG TABLET PO SCH (13:57)
--- NOTE | 2016-09-28 14:22 | NUR ---
RN [place] SEEN AND EXAMINED BY DR. BERUMEN WITH NEW ORDERS MADE AND CARRIED OUT WEAK IN APPEARANCE COREG MAINTAINED AT 6.25 MG PER MD ORDER SEEN BY MARGI WOUND CARE NURSE WITH NEW ORDERS MADE AND CARRIED OUT PLACED ON A KCI MATTRESS POSSIBLE [facility]
[2016-09-28] MEDS: LISINOPRIL (5MG) 5 MG TABLET PO SCH (16:05)
[2016-09-28] MEDS: FUROSEMIDE 20 MG TABLET PO SCH (16:05)
[2016-09-28] MEDS: POTASSIUM CHLORIDE 10 MEQ TABLET.SA PO SCH (16:06)
[2016-09-28] MEDS: APIXABAN 2.5 MG TABLET PO SCH (17:06)
[2016-09-28] MEDS: CLOTRIMAZOLE 1% 15 GM TUBE TP SCH (17:07)
--- NOTE | 2016-09-28 19:45 | NUR ---
RN INITIAL NOTE RECEIVED PT IN NO ACUTE DISTRESS IN BED. PT IS A/O X 2 WITH PERIODS OF CONFUSION. PT IS ON O2 VIA NC @ 3 LPM AND TOLERATING WELL WITH O2 SAT @ 95%. PT IS ON TELE WITH CONTROLLED AFIB ON THE MONITOR. PT NOT C/O ANY SOB, DIFFICULTY BREATHING OR PAIN AT THIS TIME. PT HAS LAC 20G THAT IS CLEAN DRY INTACT AND PATENT WITH SALINE FLUSH. BED IN LOW LOCK POSITION WITH RIALS UP X 2. CALL LIGHT WITHIN REACH AND ALL SAFETY MEASURES ENSURED AND CARRIED OUT. WILL CONTINUE TO MONITOR PT.
[2016-09-28] MEDS: MUPIROCIN OINT 2% 22 GM TUBE SCH (21:00)
[2016-09-28] MEDS: DONEPEZIL 5 MG TABLET PO SCH (21:15)
[2016-09-29] VITALS (8 sets, daily range): BP systolic 88–148; BP diastolic 55–79
--- NOTE | 2016-09-29 06:40 | NUR ---
RN CLOSING NOTE PT REMAINS IN NO ACUTE DISTRESS IN BED. PT DID NOT HAVE ANY SIGNIFICANT CHANGE IN CONDITION DURING SHIFT. ALL NEEDS MET ALL ORDERS CARRIED OUT. WILL ENDORSE REPORT TO AM RN FOR CONTINUITY OF CARE.
[2016-09-29 07:18] LABS: BASOPHILS % (AUTO) 0.3 % (0.0-2.0); EOSINOPHILS # (AUTO) 0.3 /CMM (0.0-0.7); HEMATOCRIT 37 % (33-45); HEMOGLOBIN 12.5 g/dL (11.5-14.8); LYMPHOCYTES # (AUTO) 1.1 /CMM (0.8-4.8); LYMPHOCYTES % (AUTO) 13.1 % (20.0-44.0); MEAN CORPUSCULAR HEMOGLOBIN 32 PG (26.0-33.0); MEAN CORPUSCULAR HGB CONC 34 g/dl (31.0-36.0); MEAN CORPUSCULAR VOLUME 94 fL (82-100); MONOCYTES # (AUTO) 0.6 /CMM (0.1-1.30); MONOCYTES % (AUTO) 6.8 % (2.0-12.0); NEUTROPHILS # (AUTO) 6.1 /CMM (1.8-8.9); NEUTROPHILS % (AUTO) 75.8 % (43.0-81.0); PLATELET COUNT (AUTO) 221 /CMM (150-450); RDW COEFFICIENT OF VARIATION 14.9 (11.5-15.0); RED BLOOD CELL COUNT(AUTO) 3.95 MIL/uL (4.0-5.2); WHITE BLOOD COUNT (AUTO) 8.1 K/uL (4.3-11.0)
--- NOTE | 2016-09-29 07:20 | NUR ---
SIGNAL MAINTENANCE TECHNICIAN INITIAL NOTES: REC'D PT ASLEEP ON BED, NOT IN ANY DISTRESS, A/O X1, EASILY AROUSABLE. ON O2/NC AT 3LPM, SATURATING 95%. ON TELEMONITOR, CONTROLLED AFIB. PT HAS L AC G20, SL, FLUSHED, PATENT & INTACT W/ NO S/SX OF INFECTION/ INFECTION. PROVIDED COMFORT & SAFETY MEASURES. CALL LIGHT PLACED W/IN REACH. BED KEPT LOW & IN LOCKED POS. WILL CONTINUE TO MONITOR.
[2016-09-29 07:29] LABS: CALCIUM, SERUM 8.3 mg/dL (8.5-10.1); CARBON DIOXIDE 31 mmol/L (21-32); CHLORIDE 112 mmol/L (98-107); CREATININE 0.7 mg/dL (0.6-1.3); GLUCOSE 75 mg/dL (74-106); POTASSIUM 4.1 mmol/L (3.5-5.1); SODIUM SERUM 149 mmol/L (136-145); UREA NITROGEN, BLOOD 32 mg/dL (7-18)
[2016-09-29] MEDS: ZINC SULFATE 220 MG CAPSULE PO SCH (08:27)
[2016-09-29] MEDS: ASCORBIC ACID 500 MG TABLET PO SCH (08:27)
[2016-09-29] MEDS: POTASSIUM CHLORIDE 10 MEQ TABLET.SA PO SCH (08:27)
[2016-09-29] MEDS: MULTIVIT, IRON, MIN NO. 8, FA 1 TAB PO SCH (08:27)
[2016-09-29] MEDS: LEVOTHYROXINE SODIUM 75 MCG TABLET PO SCH (08:28)
[2016-09-29] MEDS: CARBIDOPA/LEVODOPA 10/100 MG 1 UDTAB PO SCH ×4 (08:28→21:12)
[2016-09-29] MEDS: ASPIRIN EC 81 MG TABLET.DR PO SCH (08:28)
[2016-09-29] MEDS: FUROSEMIDE 20 MG TABLET PO SCH (08:28)
[2016-09-29] MEDS: LISINOPRIL (5MG) 5 MG TABLET PO SCH (08:29)
[2016-09-29] MEDS: PRAMIPEXOLE DI-HCL 0.25 MG TABLET PO SCH ×4 (08:29→21:12)
[2016-09-29] MEDS: CARVEDILOL 6.25 MG TABLET PO SCH ×2 (08:31→21:17)
[2016-09-29] MEDS: Z GUARD REMEDY 2 OZ OINT TP SCH (08:33)
[2016-09-29] MEDS: CLOTRIMAZOLE 1% 15 GM TUBE TP SCH ×2 (08:33→17:13)
[2016-09-29] MEDS: PROSOURCE / PROSTAT (PYXIS) 30 ML UDC PO SCH ×2 (08:34→17:12)
[2016-09-29] MEDS: MUPIROCIN OINT 2% 22 GM TUBE SCH ×2 (08:37→21:17)
[2016-09-29] MEDS: APIXABAN 2.5 MG TABLET PO SCH ×2 (08:37→17:11)
[2016-09-29] MEDS ORDERED: HYDROGEL DRESSING 90 GM TUBE TP SCH (09:00)
[2016-09-29] MEDS ORDERED: FURO20TA4 PO (11:43)
[2016-09-29] MEDS ORDERED: CARV6.252 PO (11:43)
[2016-09-29] MEDS ORDERED: POTA10TA10 PO (11:43)
[2016-09-29] MEDS ORDERED: Digoxin PO (11:43)
[2016-09-29] MEDS ORDERED: LISI5TAB45 PO (11:43)
--- NOTE | 2016-09-29 11:52 | NUR ---
RN NOTES: PT SEEN & EXAMINED BY DR. BERUMEN W/ DC ORDERS.
[2016-09-29] MEDS: DIGOXIN 0.125 MG TABLET PO SCH (12:51)
--- NOTE | 2016-09-29 19:00 | NUR ---
COURT MESSENGER CLOSING NOTES: NO ACUTE CHANGES NOTED W/IN SHIFT. PT FOR DC BACK TO [facility] ORDERED. REPORT GIVEN TO NAKUL ALFONSO. PER FRANCISCO (EFREN), PT WILL ASSISTANT PROFESSOR OF CRIMINAL JUSTICE BY TRANSPORTATION PROVIDED BY PT'S INSURANCE, NO TIME GIVEN BUT NEED TO PREPARE PT 4PM. WOUND PHOTOS DONE. PREPARED ALL DC DOCUMENTS. KEPT WELL RESTED. NEEDS ATTENDED. ISOLATION PREC OBSERVED. CALL LIGHT PLACED W/IN REACH. BED KEPT LOW & IN LOCKED POS. ENDORSED TO PM RN FOR KATINA, AWAITING FOR TRANSPORTATION.
--- NOTE | 2016-09-29 19:19 | NUR ---
RN NOTE RECEIVED PT IN NO ACUTE DISTRESS IN BED. AWAITING EMS FOR TRANSPORT TO [facility]. PT NOT C/O ANY SOB, DIFFICULTY BREATHING OR PAIN AT THIS TIME.
[2016-09-29] MEDS: DONEPEZIL 5 MG TABLET PO SCH (21:13)
--- NOTE | 2016-09-29 21:50 | NUR ---
RN CLOSING NOTE PT REMAINS IN NO ACUTE DISTRESS IN BED. EMS IS AT BEDSIDE. PT TRANSFERRED TO [facility] WITHOUT ANY ADVERSE EFFECTS. IV REMOVED AND PT LEFT HOSPITAL WITH EMS IN STABLE CONDITION.
== END 2016-09-29 22:26 | DRG 308 ==
LOC: ER 14:39 → TELE-TD 18:07 → TELE1 09-28 10:04
PROVIDERS: ADMIT Internal Medicine; ATTEND Internal Medicine
DX: I48.91 Unspecified atrial fibrillation (principal); G93.40 Encephalopathy, unspecified; I50.22 Chronic systolic (congestive) heart failure; G20 Parkinson's disease; F03.90 Unspecified dementia, unspecified severity, without behavioral disturbance, psychotic disturbance, mood disturbance, and anxiety; E87.6 Hypokalemia; E03.9 Hypothyroidism, unspecified; R13.10 Dysphagia, unspecified; F02.80 Dementia in other diseases classified elsewhere, unspecified severity, without behavioral disturbance, psychotic disturbance, mood disturbance, and anxiety; Z96.643 Presence of artificial hip joint, bilateral; J44.9 Chronic obstructive pulmonary disease, unspecified; Z79.899 Other long term (current) drug therapy; Z79.82 Long term (current) use of aspirin; Z79.01 Long term (current) use of anticoagulants; Z87.440 Personal history of urinary (tract) infections; Z88.0 Allergy status to penicillin
CPT/HCPCS: 36415; 71010-TC; 80048-TC; 80076-TC; 82962-TC; 83880; 84443-TC; 84484-TC; 85025-TC; 85730-TC; 87081-TC; A4606; A6248; J1160; J1644; J1940; J2270; J3480; J3490; Z7610